=== PATIENT | female | born 1955 | race Caucasian/White ===

== ENCOUNTER → 2018-08-23 08:04 | Outpatient (CLI) | payer MEDICARE, OTHER | END | disposition home or self-care (01) | LOC: D.HCCARDIO 08:04 | PROVIDERS: ATTEND Internal Medicine Interventional Cardiology | DX: I25.10 Atherosclerotic heart disease of native coronary artery without angina pectoris (principal) ==

== ENCOUNTER 2018-09-01 11:39 | Outpatient (CLI) | payer MEDICARE, OTHER ==
[~2018-09-01] VITALS: Ht 170.2 cm; Wt 85.0 kg
--- NOTE | ~2018-09-01 | HEMODYNAMI ---
PATIENT:NICK TRIMBLE MEDICAL RECORD: [id number] : 51 LOCATION:D.CAT ADMISSION DATE: 09/01/18 Generatedon:09/01/201814:24 Patient name: NICK TRIMBLE Patient #: [id number] SSN: : 1955 Date of study: 09/01/2018 Page: Of Hemodynamic Procedure Report Patient Data Patient Demographics Procedure consent was obtained First Name: NICK Gender: Female Last Name: NAI : 1955 Middle Initial: D Age: 63 year(s) Patient #: [id number] Race: Unknown Additional ID: [id number] Contact details Address: [place] [address] State: [place] City: [place] Zip code: [address] Past Medical History Allergies Allergen Reaction Date Comments Reported Sulfa drugs 09/01/2018 Other allergy 09/01/2018 TETRACYCLINE, NORCO Admission Admission Data Admission Date: 09/01/2018 Admission Time: 11:39 Procedure Procedure Types Cath Procedure Diagnostic Procedure [facility] w/Coronaries Sedation Charges Moderate Sedation up to 15 minutes PCI Procedure Coronary Stent Coronary Stent Initial Procedure Description Procedure Date Procedure Date: 09/01/2018 Procedure Start Time: 14:02 Procedure End Time: 14:23 Procedure Staff Name Function Bartolo Marquez MD Performing Physician Lydia Newman RT Monitor Noel Estrada RN Nurse Nj Plata RT Scrub Procedure Data Cath Procedure Fluoroscopy Diagnostic fluoroscopy Total fluoroscopy Time: 3.8 time: 3.8 min min Diagnostic fluoroscopy Total fluoroscopy dose: 268 dose: 268 mGy mGy Contrast Material Contrast Material Type Amount (ml) Isovue 300 108 Entry Location Entry Primary Successful Side Size Upsize Upsize Entry Closure Lopez ccessful Closure Location (Fr) 1 (Fr) 2 (Fr) Remarks Device Remarks Radial Right 6 Fr Mechanical artery Short Compression Estimated blood loss: 5 ml Diagnostic catheters Device Type Used For End Catheter Placement DIAGNOSTIC [place] 110cm 5 LV Angiography Fr catheter ([id number]) DIAGNOSTIC [place] 110cm 5 Left Coronary Fr catheter ([id number]) Angiography DIAGNOSTIC [place] 110cm 5 Right Coronary Fr catheter ([id number]) Angiography Procedure Complications No complications Procedure Medications Medication Administration Route Dosage Oxygen etCO2 Nasal cannula 2 l/min Lidocaine 2% added to field 20 Heparin Flush Bag added to field 2 bags (1000units/500ml NS) 0.9% NaCl I.V. 100 ml/hr Radial Cocktail added to field 1 syringe (Verapomil 2mg/Nitro 400mcg/Heparin 1500units) Versed I.V. 2 mg Fentanyl I.V. 100 mcg Fentanyl I.V. 50 mcg Heparin Bolus I.V. 4000 units Versed I.V. 1 mg Fentanyl I.V. 50 mcg Hemodynamics Rest Heart Rate: 71 (bpm) Pressure Samples Time Site Value (mmHg) Purpose Heart Use Rate(bpm) 14:08 LV 145/12,19 EDP 42 14:09 AO 117/51(76) Pullback 75 14:09 LV 142/15,24 Pullback 75 14:09 AO 118/42(71) Snapshot 71 Gradients Valve Time Site 1 Site 2 Mean SEP/DFP Peak To Heart Use (mmHg) (sec/min) Peak Rate (mmHg) (bpm) Aortic 14:09 LV AO 18 16 25 75 142/15,24 117/51(76) Calculations Valve P-P Mean Valve Index Valve Source Name Gradient Area Flow (cm2) Aortic 25 18 25 18 Snapshots Pre Cath Intra NCS Post Cath Vital Signs Time Heart Resp SPO2 etCO2 NIBP (mmHg) Rhythm Pain Sedation Rate (ipm) (%) (mmHg) Status Level (bpm) 13:51:19 72 29 92 7.5 159/69(114) NSR 0 (11) 10(A) , No pain 13:55:56 69 16 97 9.8 154/72(130) NSR 0 (11) 10(A) , No pain 14:00:30 68 14 97 38.4 150/70(115) NSR 0 (11) 10(A) , No pain 14:05:07 66 17 97 20 154/63(108) NSR 0 (11) 9(A) , No pain 14:09:43 81 15 97 15.8 130/58(96) NSR 0 (11) 9(A) , No pain 14:14:11 73 19 96 19 140/61(115) NSR 0 (11) 9(A) , No pain 14:18:38 68 18 96 0 123/57(93) NSR 0 (11) 10(A) , No pain Medications Time Medication Route Dose Verified Delivered Reason Not es Effectiveness by by 13:52:46 Oxygen etCO2 2 l/min Bartolo Warrenie used for Nasal St Ko Estrada RN procedure cannula 13:52:56 Lidocaine 2% added 20ml Bartolo Mcfarland for local to vial [facility] anesthetic field MD CLEMENS 13:53:02 Heparin Flush added 2 bags Bartolo Mcfarland used for Bag to [facility] procedure (1000units/500ml field MD CLEMENS NS) 13:53:13 0.9% NaCl I.V. 100 Bartolo Warrenie Per physician ml/hr St Ko Estrada RN, MD 13:53:23 Radial Cocktail added 1 Bartolo Mcfarland for (Verapomil to syringe [facility] vasodilation 2mg/Nitro field MD CLEMENS 400mcg/Heparin 1500units) 14:00:29 Versed I.V. 2 mg Bartolo Warrenie for sedation St Ko Estrada RN, MD 14:00:35 Fentanyl I.V. 100 mcg Bartolo Warrenie for sedation St Ko Estrada RN, MD 14:08:13 Fentanyl I.V. 50 mcg Bartolo Warrenie for sedation St Ko Estrada RN, MD 14:08:47 Versed I.V. 1 mg Bartolo Warrenie for sedation St Ko Estrada RN, MD 14:12:54 Heparin Bolus I.V. 4000 Bartolo Buffie for joshua ified units St Ko Estrada RN anticoagulation with dr MD so 14:16:04 Fentanyl I.V. 50 mcg Bartolo Cohen for sedation St Ko Estrada RN, MD Procedure Log Time Note 13:31:47 Nj Plata RT(R) sent for patient. Start room use. 13:31:48 Time tracking: Regular hours (M-F 7:00 - 5:00) 13:31:53 Plan of Care:Hemodynamics will remain stable., Cardiac rhythm will remain stable., Comfort level will be maintained., Respiratory function will remain adequate., Patient/ family verbilizes understanding of procedure., Procedure tolerated without complication., Recovers from procedure without complications.. 13:40:09 Patient received from Pre/Post Procedure Room to [facility] 3 Alert and oriented. Tansferred to table in Supine position. 13:40:10 Warm blankets applied, and benito hugger turned on for patient comfort. 13:40:10 Correct patient and procedure confirmed by team. 13:40:11 Signed procedure consent form obtained from patient. 13:40:12 ECG and BP/O2 sat monitors applied to patient. 13:40:13 Full Disclosure recording started 13:49:53 Vital chart was started 13:50:48 Rhythm: sinus rhythm 13:50:51 Baseline sample Acquired. 13:51:09 H&P Date Dictated: 08/13/2018 Within 30 days and on chart., H&P Addendum completed by physician on day of procedure. (MUST COMPLETE FOR ALL OUTPATIENTS). 13:51:10 Pre-procedure instructions explained to patient. 13:51:14 Pre-op teaching completed and patient verbalized understanding. 13:51:16 Family in waiting room. 13:51:19 Patient NPO since Midnight. 13:51:29 Patient allergic to Sulfa drugs 13:51:45 Patient allergic to Other allergyTETRACYCLINE, NORCO 13:51:49 Is the patient allergic to Iodine/contrast media? No. 13:51:50 Is patient on blood thinner?Yes 13:51:52 ACC The patient was administered the following blood thiners within the last 24 hours: ACCPlavix 13:51:58 Patient diabetic? Yes. 13:51:59 If diabetic: On Metformin? No 13:52:04 Previous problem with sedation/anesthesia? No ? 13:52:05 Snore? Yes 13:52:06 Sleep apnea? Yes 13:52:07 Deviated septum? No 13:52:09 Opens mouth fully? Yes 13:52:10 Sticks out tongue? Yes 13:52:17 Airway obstruction? Yes ASTHMA 13:52:23 Dentures? Yes IN 13:52:26 Pre procedure: right dorsailis pedis pulse 2+ Normal; easily identifiable; not easily obliterated 13:52:28 Modified Carl's test Ulnar < 7 seconds 13:52:31 Patient pain scale 0/10 ?. 13:52:41 IV patent on arrival in left forearm with 0.9% NaCl at KVO. 13:52:43 Lab results completed and on chart. 13:52:46 Oxygen 2 l/min etCO2 Nasal cannula was administered by Noel Estrada RN; used for procedure; 13:52:49 Right Radial & Right Groin area was prepped with chlora-prep and draped in sterile fashion 13:52:50 Alarms reviewed by R. N. 13:52:50 Sharps counted by scrub and verified by R.N. 13:52:55 Use device set Radial Dx or PCI 13:52:56 Lidocaine 2% 20ml vial added to field was administered by Bartolo Marquez MD; for local anesthetic; 13:52:56 ACIST Syringe (75406) opened to sterile field. 13:52:57 Medline Cath Pack ([id number]) opened to sterile field. 13:52:57 Bag Decanter (2002S) opened to sterile field. 13:52:57 DIAGNOSTIC WIRE .035 260cm J wire (804167) opened to sterile field. 13:52:58 ACIST Hand Control (43742) opened to sterile field. 13:52:58 ACIST Manifold (35933) opened to sterile field. 13:52:59 MBrace Wrist Support ([id number]) opened to sterile field. 13:53:02 Heparin Flush Bag (1000units/500ml NS) 2 bags added to field was administered by Bartolo Marquez MD; used for procedure; 13:53:03 SHEATH 6FR Slender (801060) opened to sterile field. 13:53:13 0.9% NaCl 100 ml/hr I.V. was administered by Noel Estrada RN; Per physician; 13:53:23 Radial Cocktail (Verapomil 2mg/Nitro 400mcg/Heparin 1500units) 1 syringe added to field was administered by Bartolo Marquez MD; for vasodilation; 13:58:52 Final Timeout: patient, procedure, and site verified with staff and physician. All members of the team are in agreement. 13:58:55 Right Radial site verified by team. 13:58:58 Maximum allowable Isovue 300 dose 300ml. Physician notified. (300ml for normal creatinines. For patients with creatinine of 1.7 or higher multiply weight(kg) x 5 divided by creatinine.) 13:59:02 Fire Safety Assessment: A--An alcohol-based skin anteseptic being used preoperatively., C--Open oxygen or nitrous oxide is being used., D--An ESU, laser, or fiber-optic light is being used. 13:59:08 Physical assessment completed. ASA score P 2 - A patient with mild systemic disease as per Bartolo Marquez MD. 13:59:12 Sedation plan: IV Moderate Sedation Medication:Versed, Fentanyl 14:00:29 Versed 2 mg I.V. was administered by Noel Estrada RN; for sedation; 14:00:35 Fentanyl 100 mcg I.V. was administered by Noel Estrada RN; for sedation; 14:01:58 Zero performed for pressure channel P1 14:02:01 Procedure started. 14:02:04 Local anesthetic to right radial artery with Lidocaine 2% by Bartolo Marquez MD.INITIAL ACCESS ONLY 14:02:29 Zero performed for pressure channel P1 14:05:14 A 6 Fr Short sheath was inserted into the Right Radial artery 14:07:41 A DIAGNOSTIC [place] 110cm 5 Fr catheter (670381) was advanced over the wire and used for LV Angiography. 14:08:13 Fentanyl 50 mcg I.V. was administered by Noel Estrada RN; for sedation; 14:08:19 LV gram done using LUCIO 14:08:22 Injector settings: Ml/sec: 5, Volume: 15, 14:08:23 LV hemodynamics recorded. 14:08:47 Versed 1 mg I.V. was administered by Noel Estrada RN; for sedation; 14:08:49 EF : 55 % 14:09:14 A DIAGNOSTIC [place] 110cm 5 Fr catheter (744133) was advanced over the wire and used for Left Coronary Angiography. 14:10:24 A DIAGNOSTIC [place] 110cm 5 Fr catheter (034190) was advanced over the wire and used for Right Coronary Angiography. 14:11:02 Catheter removed. 14:11:07 Use device set HEPLER PCI 14:11:12 INFLATOR Merit BasixCompak ([id number]) opened to sterile field. 14:11:15 WHISPER 300cm guide wire ([id number]) opened to sterile field. 14:12:18 GUIDE 6FR EBU 3.5 catheter ([id number]) opened to sterile field. 14:12:23 6 Fr EBU 3.5 guide catheter was inserted over the wire 14:12:54 Heparin Bolus 4000 units I.V. was administered by Noel Estrada RN; for anticoagulation; verified with dr so 14:16:04 Fentanyl 50 mcg I.V. was administered by Noel Estrada RN; for sedation; 14:16:28 WHISPER wire advanced. 14:18:38 Place stent Inflation Number: 1 A JASON OTW 3.0 x 12 stent ([id number]) was prepped and advanced across the Mid CX. The stent was deployed at 14 NICOLLE for 0:20 (min:sec). 14:18:52 Stent catheter was removed intact over wire. 14:18:54 Wire removed. 14:18:55 Guide catheter removed. 14:19:04 Sheath removed intact; hemostasis achieved with Mechanical Compression to the Right Radial artery. 14:19:11 Procedure ended.(Physican Out) 14:19:26 Fluoroscopy time 03.80 minutes. 14:19:32 Fluoroscopy dose: 268 mGy 14:19:32 Flurop Dose total: 268 14:19:35 Contrast amount:Isovue 300 108ml. 14:19:37 Sharps counted by scrub and verified by R.N. 14:19:39 Insertion/operative site no bleeding no hematoma. 14:19:47 Post right radial artery:stable, clean and dry 14:19:53 Post Procedure Pulses reassessed and unchanged 14:19:57 Post-procedure physical assessment completed. ASA score P 2 - A patient with mild systemic disease as per Bartolo Marquez MD. 14:19:59 Post procedure rhythm: unchanged. 14:20:02 Estimated blood loss: 5 ml 14:20:03 Post procedure instruction explained to patient.Patient verbalizes understanding. 14:20:03 Patient needs reinforcement of post procedure teaching. 14:20:28 Procedure type changed to Cath procedure, Diagnostic procedure, LHC, LHC w/Coronaries, Sedation Charges, Moderate Sedation up to 15 minutes, PCI procedure, Coronary Stent, Coronary Stent Initial 14:20:33 Procedure Complication : No complications 14:20:35 See physician's report for complete and final results. 14:20:53 TR BAND Standard ([id number]) opened to sterile field. 14:21:12 Procedure and supply charges have been captured, reviewed, submitted and are correct. 14:23:03 Vital chart was stopped 14:23:07 Report given to Pre/Post Procedure Room. 14:23:09 Patient transfered to Pre/Post Procedure Room with Stretcher. 14:23:13 Procedure ended. 14:23:13 Full Disclosure recording stopped 14:23:35 TR band inflated with 10cc of air. 14:23:44 End room use (Document Last) Intervention Summary Intervention Notes Time ActionType Lesion and Equipment Action# Pressure Duration Attributes Used 14:18:38 Place stent Mid CX JASON OTW 3.0 1 14 00:20 x 12 stent ([id number]) Device Usage Item Name Manufacture Quantity Catalog Hospital Part Current Mini mal Lot# / Number Charge Number Stock Stock Serial# Code ACIST Syringe Acist 1 07950 133450 582615 [id number] 20 (63735) Medical Systems Inc Medline Cath Medline 1 [id number] 171499 34460 061136 5 Pack ([id number]) Bag Decanter Microtek 1 2001S 715199 34738 726879 5 () Medical Inc. DIAGNOSTIC [facility] [place] 1 783617 059370 304473 521886 30 WIRE .035 260cm J wire (444395) ACIST Hand Acist 1 75441 379192 009192 147304 5 Control Medical (57568) Systems Inc ACIST Acist 1 67435 217116 406568 346448 5 Manifold Medical (72537) Systems Inc MBrace Wrist Advanced 1 140-0250-00 350660 99789 257606 5 Support Vascular ([id number]) Dynamics SHEATH 6FR Terumo 1 [id number] 633975 787330 508439 5 Slender (80-1060) DIAGNOSTIC Terumo 1 40-5013 361218 374917 693295 5 [place] 110cm 5 Fr catheter (232927) INFLATOR [facility] 1 GS4664 932298 922342 282296 15 [facility] Medical BasixCompak (ND1413) WHISPER 300cm Olvera 1 [id number] 401643 378040 516336 5 guide wire Vascular ([id number]) GUIDE 6FR EBU Medtronic 1 [id number] 706264 54942 777547 3 3.5 catheter ([id number]) JASON OTW 3.0 Medtronic 1 [id number] 790026 4498619 839397 5 [id number] x 12 stent ([id number]) TR BAND Terumo 1 [id number] 643902 044097 369440 40 Standard ([id number]) Signature Audit [place] Stage Time Signature Unsigned Intra-Procedure 09/01/2018 Lydia 2:23:56 PM Counts RT(R) Signatures Monitor : Lydia Signature : Counts RT Date : Time : [address] [place] [address]
[2018-09-01] MEDS ORDERED: NORVASC10 MG PO (12:21)
[2018-09-01] MEDS ORDERED: PLAVIX75 MG PO (12:22)
[2018-09-01] MEDS ORDERED: COREG 3.1253.125 MG PO (12:22)
[2018-09-01] MEDS ORDERED: MIRAPEX0.5 MG PO (12:23)
[2018-09-01] MEDS ORDERED: HYDROCHLOROTHIA50 MG PO (12:23)
[2018-09-01] MEDS ORDERED: ZYRTEC10 MG PO (12:24)
[2018-09-01] MEDS ORDERED: MICARDIS40 MG PO (12:24)
[2018-09-01] MEDS ORDERED: FUROSEMIDE20 MG PO (12:24)
[2018-09-01] MEDS ORDERED: FERROUS SULFAT325 MG PO (12:27)
[2018-09-01] MEDS ORDERED: METOLAZONE2.5 MG PO (12:27)
[2018-09-01] MEDS ORDERED: LANTUS INSULIN10 ML SC (12:28)
[2018-09-01] MEDS ORDERED: NOVOLOG100 UNIT/1 SC (12:28)
[2018-09-01] MEDS ORDERED: NITROQUICK0.4 MG SL (12:28)
[2018-09-01] MEDS ORDERED: B-12 DOTS500 MCG PO (12:29)
[2018-09-01] MEDS ORDERED: VITAMIN D31000 UNIT PO (12:29)
[2018-09-01] MEDS ORDERED: VITAMIN E100 UNIT PO (12:29)
[2018-09-01 12:42] VITALS: BP 164/67; Ht 170.2 cm; Wt 85.0 kg
[2018-09-01 12:42] LABS: BASOPHILS 0.6 % (0-2); EOSINOPHILS 1.9 % (0-7); HEMATOCRIT 37.8 % (36.0-48.0); IMMATURE GRANULOCYTES 0.2 % (0-5); LYMPHOCYTES 28.5 % (15-50); MCH 28.1 pg (26.0-34.0); MCHC 34.4 g/dL (31.0-37.0); MCV 81.8 fL (80.0-100.0); MEAN PLATELET VOLUME 12.1 fL (7.4-10.4); MONOCYTES 6.7 % (2-11); NEUTROPHILS 62.1 % (40-80); PLATELET COUNT 171 10x3/uL (130-400); RBC 4.62 10x6/uL (4.00-5.40); RDW 12.4 % (11.5-14.5); WBC 8.2 10x3/uL (4.8-10.8)
[2018-09-01 12:51] LABS: ANION GAP 11.3 mmol/L (8-16); CALCIUM 9.6 mg/dL (8.5-10.1); CARBON DIOXIDE 28.2 mmol/L (21.0-32.0); CREATININE - SERUM 0.9 mg/dL (0.6-1.3); POTASSIUM - SERUM 4.5 mmol/L (3.5-5.1)
--- NOTE | 2018-09-01 14:50 | NUR ---
PATIENT INTERMITTENTLY RESTING, WAKES TO VERBAL STIMULI. VSS ON 2L NC. RIGHT TR BAND IN PLACE, NO S/S OF BLEEDING OR HEMATOMA. NO C/O PAIN,NUMBNESS, OR TINGLING. NO N/V.
--- NOTE | 2018-09-01 14:51 | OP ---
PATIENT NAME: NICK TRIMBLE MEDICAL RECORD: [id number] :51 LOCATION:[facility] ADMISSION DATE: SURGEON: JOHN PEREZ MD DATE OF OPERATION: 09/01/2018 PROCEDURE: Left heart catheterization, selective coronary angiography, right radial approach. CATHETERS USED: Lavelle catheter, radial sheath. The procedure was well tolerated. The patient returned to titus, sheath removed. FINDINGS: Left ventriculography in 30-degree LUCIO view. Normal wall motion and normal systolic function. CORONARY ANATOMY: LEFT MAIN: Left main is free of disease. LAD: An area of previous stenting is widely patent. No evidence of progression disease. CIRCUMFLEX: Circumflex has a restenosis versus algaaciq disease lesion just after the previously placed stent of 90%. RIGHT CORONARY ARTERY: Previously placed stent and widely patent. IMPRESSION: Culprit artery of circumflex. PLAN: Intervention momentarily. DESCRIPTION OF PROCEDURE: EBU 3.5 guiding catheter provided good guide catheter support followed by 300 cm Whisper wire. Stent deployed was a 3.0 x 12 mm Willard drug-eluting stent up to 14 atmospheres. Final injection shows excellent resolution of a 90% stenosis. No significant residual. ALEA flow was 3 throughout the procedure. The patient previously on Plavix. Heparin was used during the case. Sheath closed with TR band. TRANSINT:[id number] Voice Confirmation ID: [id number] DOCUMENT ID: [id number] JOHN PEREZ MD at 1451 CC: [id number] DICTATION DATE: 09/01/18 1424 PULP PRESS TENDER: 09/01/18 1443 [address] [place] [id number] [place] [id number]
--- NOTE | 2018-09-01 15:19 | NUR ---
PATIENT AWAKE, EATING SANDWICH. VSS ON 3L NC. RIGHT TR BAND IN PLACE, NO S/S OF BLEEDING OR HEMATOMA. NO C/O PAIN, NUMBNESS, OR TINGLING. NO N/V.
--- NOTE | 2018-09-01 15:50 | NUR ---
PATIENT AWAKE, EATING ORANGES AND DRINKING WATER, NO N/V. RIGHT TR BAND IN PLACE, NO S/S OF BLEEDING OR HEMATOMA. NO C/O PAIN, NUMBNESS, OR TINGLING. VSS ON ROOM AIR.
--- NOTE | 2018-09-01 16:17 | NUR ---
PATIENT AWAKE AND SITTING UP, SPOUSE AT BEDSIDE. VSS ON ROOM AIR. RIGHT TR BAND IN PLACE, NO S/S OF BLEEDING OR HEMATOMA. NO C/O PAIN,NUMBNESS, OR TINGLING. GIVEN CHOCOLATE ICE CREAM PER REQUEST, NO N/V.
--- NOTE | 2018-09-01 16:50 | NUR ---
PATIENT AWAKE, SPOUSE AT BEDSIDE. VSS ON ROOM AIR. RIGHT TR BAND IN PLACE, NO S/S OF BLEEDING OR HEMATOMA. NO C/O PAIN, NUMBNESS, OR TINGLING. NO N/V.
--- NOTE | 2018-09-01 17:20 | NUR ---
INITIATE AIR REMOVAL PROTOCOL FOR TR BAND, 5CC OF AIR REMOVED, NO S/S OF BLEEDING OR HEMATOMA. PATIENT INTERMITTENTLY RESTING, VSS ON 2L NC. NO C/O PAIN, NUMBNESS, OR TINGLING.
--- NOTE | 2018-09-01 17:50 | NUR ---
REMAINING AIR REMOVED FROM TR BAND, NO S/S OF BLEEDING OR HEMATOMA. DRESSING APPLIED TO RIGHT RADIAL SITE. IV REMOVED. EDUCATION GIVEN TO PATIENT AND SPOUSE REGARDING DISCHARGE INSTRUCTIONS AND MEDICATION COMPLIANCE, BOTH VOICE UNDERSTANDING. VSS ON ROOM AIR.
--- NOTE | 2018-09-01 18:19 | NUR ---
PATIENT VOIDED WITHOUT DIFFICULTY. PATIENT TRANSPORTED VIA WHEELCHAIR TO CAR WITH SPOUSE DRIVING, ALL BELONGINGS SENT WITH PATIENT.
== END 2018-09-01 18:19 ==
LOC: D.CATH 11:39
PROVIDERS: ATTEND Internal Medicine Interventional Cardiology
DX: I25.10 Atherosclerotic heart disease of native coronary artery without angina pectoris (principal); T82.855A Stenosis of coronary artery stent, initial encounter; Z01.812 Encounter for preprocedural laboratory examination
CPT/HCPCS: 93458; C9600

== ENCOUNTER 2020-11-11 00:33 | Inpatient (IN) | payer MEDICARE, OTHER ==
[~2020-11-11] VITALS: Ht 170.2 cm; Wt 89.7 kg
[2020-11-11] VITALS (7 sets, daily range): BP systolic 143–182; BP diastolic 54–73; Ht 170.2 cm; Wt 89.7 kg
--- NOTE | ~2020-11-11 | HEMODYNAMI ---
PATIENT:NICK TRIMBLE MEDICAL RECORD: [id number] : 51 LOCATION:[facility] D.2104 ADMISSION DATE: 11/11/20 Generatedon::38 Patient name: NICK TRIMBLE Patient #: [id number] SSN: [id number] : 1955 Date of study: 11/12/2020 Page: Of Hemodynamic Procedure Report Patient Data Patient Demographics Procedure consent was obtained First Name: NICK Gender: Female Last Name: NAI : 1955 Middle Initial: D Age: 65 year(s) Patient #: [id number] Race: SSN: [id number] Additional ID: [id number] Contact details Address: [place] [address] State: [place] City: [place] Zip code: [address] Past Medical History Allergies Allergen Reaction Date Comments Reported Sulfa drugs 09/01/2018 Other allergy 09/01/2018 TETRACYCLINE, NORCO Admission Admission Data Admission Date: 11/11/2020 Admission Time: 17:34 Arrival Date: 11/12/2020 Arrival Time: 0:00 Admit Source: Other Insurance Payor: Medicare Room #: D.2104 [facility] #: [id number] Height (in.): 67 BSA: 2.05 (m2) Height (cm.): 170.18 BMI: 32.17 (kg/m2) Weight (lbs.): 205.43 Weight (kg.): 93.18 Lab Results Lab Result Date: 11/12/2020 Lab Result Time: 0:00 Biochemistry Name Units Result Min Max BUN mg/dl 38 --(----)-* 7 18 CK-MB ng/ml 8.8 --(----)-* 0 3.6 Creatinine mg/dl 1.3 --(---*)-- 0.6 1.3 eGFR ml/min 43 *-(----)-- 90 120 NONAFRICAN Troponin l ng/ml 7.335 --(----)-* 0 0.06 CBC Name Units Result Min Max Hematocrit % 34.4 *-(----)-- 42 54 Hemoglobin g/dl 11.2 *-(----)-- 13.5 17.5 Procedure Procedure Types Cath Procedure Diagnostic Procedure LHC LH w/Coronaries FFR/IVUS FFR Initial Sedation Charges Moderate Sedation 10-24 minutes PCI Procedure Coronary Stent Coronary Stent Initial Hemochron ACT Test Procedure Description Procedure Date Procedure Date: 11/12/2020 Procedure Start Time: 8:11 Procedure End Time: 8:33 Procedure Staff Name Function Bartolo Marquez MD Performing Physician Kurt Harvey RN Nurse Luli Miller RT Scrub Funmilayo Tierney RT Monitor Procedure Data Cath Procedure Fluoroscopy Diagnostic fluoroscopy Total fluoroscopy Time: 5.4 time: 5.4 min min Diagnostic fluoroscopy Total fluoroscopy dose: dose: 1057 mGy 1057 mGy Contrast Material Contrast Material Type Amount (ml) Isovue 370 76 Entry Location Entry Primary Successful Side Size Upsize Upsize Entry Closure Lopez ccessful Closure Location (Fr) 1 (Fr) 2 (Fr) Remarks Device Remarks Radial Right 6 Fr Mechanical artery Short Compression Estimated blood loss: 10 ml Diagnostic catheters Device Type Used For End Catheter Placement DIAGNOSTIC [place] 110cm 5 Procedure Fr catheter ([id number]) Procedure Complications No complications Procedure Medications Medication Administration Route Dosage 0.9% NaCl I.V. 100 ml/hr Oxygen etCO2 Nasal cannula 2 l/min Heparin Flush Bag added to field 2 bags (1000units/500ml NS) Lidocaine 2% added to field 20 Radial Cocktail added to field 1 syringe (Verapamil 2mg/Nitro 400mcg/Heparin 1500units) Versed I.V. 1 mg Fentanyl I.V. 25 mcg Radial Cocktail I.A. 1 syringe (Verapamil 2mg/Nitro 400mcg/Heparin 1500units) Heparin Bolus I.V. 5000 units Integrilin (Bolus I.V. 8.5 ml 2mg/ml) Integrilin (Bolus wasted 1.5 ml 2mg/ml) Oxygen 10 l/min Radial Cocktail I.A. 1 syringe (Verapamil 2mg/Nitro 400mcg/Heparin 1500units) Plavix P.O. 600 mg Hemodynamics Rest BSA: 2.05 (m2) HGB: 11.2 (g/dl) O2 Consumption: Estimated: 200.98 (ml/min) O2 Co nsumption indexed: Estimated:98.04 (ml/min/m) Heart Rate: 84 (bpm) Pressure Samples Time Site Value (mmHg) Purpose Heart Use Rate(bpm) 8:14 LV 154/4,8 Snapshot 81 Gradients Valve Time Site Site Mean SEP/DFP Peak To Heart Use 1 2 (mmHg) (sec/min) Peak Rate (mmHg) (bpm) Aortic 8:15 LV AO 103 Snapshots Pre Cath Intra NCS Post Cath Vital Signs Time Heart Resp SPO2 etCO2 NIBP (mmHg) Rhythm Pain Sedation Rate (ipm) (%) (mmHg) Status Level (bpm) 8:02:57 86 19 88 0 180/79(128) NSR 0 (11) 9(A) , No pain 8:07:17 82 21 87 35.9 159/71(136) NSR 0 (11) 9(A) , No pain 8:12:46 85 12 86 12.7 158/73(120) NSR 0 (11) 9(A) , No pain 8:17:04 81 19 86 0 152/73(103) NSR 0 (11) 9(A) , No pain 8:21:31 84 34 85 0.7 159/64(123) NSR 0 (11) 9(A) , No pain 8:25:49 82 18 87 11.9 146/67(101) NSR 0 (11) 9(A) , No pain 8:30:13 75 23 93 18.7 165/64(120) NSR 0 (11) 9(A) , No pain Medications Time Medication Route Dose Verified Delivered Reason Note s Effectiveness by by 8:04:26 0.9% NaCl I.V. 100 Kurt Kurt Per physician ml/hr Wes Harvey RN RN 8:04:35 Oxygen etCO2 2 l/min Kurt Kurt for low 02 sats Nasal Wes Harvey cannula RN RN 8:04:45 Heparin Flush added 2 bags Kurt Kurt used for Bag to Wes Harvey procedure (1000units/500ml field RN RN NS) 8:04:56 Lidocaine 2% added 20ml Kurt Kurt for local to vial Lorigan Wse anesthetic field MARCUS RN 8:05:07 Radial Cocktail added 1 Kurt Kurt used for (Verapamil to syringe Wes Harvey procedure 2mg/Nitro field RN RN 400mcg/Heparin 1500units) 8:13:39 Versed I.V. 1 mg Kurt Kurt for sedation Wes Harvey RN, RN 8:13:46 Fentanyl I.V. 25 mcg Kurt Kurt for sedation Wes Harvey RN, RN 8:14:01 Radial Cocktail I.A. 1 Kurt Bartolo for (Verapamil syringe Lorigan Jimmy vasodilation 2mg/Nitro RN 400mcg/Heparin 1500units) 8:25:29 Heparin Bolus I.V. 5000 Kurt Kurt for units Wes Harvey anticoagulation RN RN 8:25:50 Integrilin I.V. 8.5 ml Kurt Kurt for (Bolus 2mg/ml) Wes Harvey antiplatelet AMRIT MARCUS therapy 8:25:59 Integrilin wasted 1.5 ml Kurt Kurt to sharp's (Bolus 2mg/ml) Wes Harvey RN, RN 8:27:49 Oxygen simple 10 Kurt Kurt for low 02 sats mask l/min Wes Harvey RN, RN 8:33:08 Radial Cocktail I.A. 1 Kurt Bartolo for (Verapamil syringe Phamigan Jimmy vasodilation 2mg/Nitro RN 400mcg/Heparin 1500units) 8:37:17 Plavix P.O. 600 mg Kurt Phillipsory for Wes Marquez antiplatelet AMRIT CLEMENS therapy Procedure Log Time Note 7:32:52 Informed consent obtained and on chart 7:33:27 Arrival Date: 11/12/2020 12:00:00 AM 7:33:29 Admit Source: Other 7:33:32 Insurance Payor : Medicare 7:33:52 Patient Height : 67 inches 7:33:58 Patient Weight : 205.43 lbs 7:34:36 Lab Result : Troponin l 7.335 ng/ml 7:34:36 Lab Result : eGFR NONAFRICAN 43 ml/min 7:34:36 Lab Result : CK-MB 8.8 ng/ml 7:34:36 Lab Result : BUN 38 mg/dl 7:34:36 Lab Result : Creatinine 1.3 mg/dl 7:34:36 Lab Result : Hematocrit 34.4 % 7:34:36 Lab Result : Hemoglobin 11.2 g/dl 7:35:45 ACC Patient presents with Unstable Angina CCS Anginal Class 2--Slight limitation of ordinary activity. 7:35:48 Procedure Status Urgent Heart Cath (IP). 7:35:49 Time tracking: Regular hours (M-F 7:00 - 5:00) 7:35:54 Plan of Care:Hemodynamics will remain stable., Cardiac rhythm will remain stable., Comfort level will be maintained., Respiratory function will remain adequate., Patient/ family verbilizes understanding of procedure., Procedure tolerated without complication., Recovers from procedure without complications.. 7:36:01 H&P Date Dictated: 11/11/2020 Within 30 days and on chart.. 7:42:55 Patient NPO since Midnight. 7:43:13 Lab results completed and on chart. 7:43:24 Stress Test: no; N/A ? 7:43:26 Alarms reviewed by R. N. 7:43:26 Sharps counted by scrub and verified by R.N. 7:47:06 Kurt Harvey RN sent for patient. Start room use. 7:49:10 Patient received from Pre/Post Procedure Room to CCL 2 Alert and oriented. Tansferred to table in Supine position. 7:49:22 Warm blankets applied, and benito hugger turned on for patient comfort. 7:49:22 Correct patient and procedure confirmed by team. 7:49:22 ECG and BP/O2 sat monitors applied to patient. 7:49:24 Full Disclosure recording started 7:49:25 Pre-procedure instructions explained to patient. 7:49:25 Pre-op teaching completed and patient verbalized understanding. 7:49:28 Family in patients room. 7:49:32 Is the patient allergic to Iodine/contrast media? No. 7:49:34 Was the patient premedicated? Yes 7:49:42 Patient diabetic? Yes. 7:49:44 If diabetic: On Metformin? No 7:49:46 Patient not . Patient is over age 55. 7:49:47 ----Pre-sedation anethsthesia assessment.---- 7:49:50 Previous problem with sedation/anesthesia? No ? 8:01:38 Vital chart was started 8:01:43 Rhythm: sinus rhythm 8:01:44 Baseline sample Acquired. 8:01:55 Is patient on blood thinner?No 8:02:00 Snore? Yes 8:02:01 Sleep apnea? No 8:02:03 Deviated septum? No 8:02:04 Opens mouth fully? Yes 8:02:04 Sticks out tongue? Yes 8:02:07 Airway obstruction? Yes COPD 8:02:10 Dentures? No ? 8:02:13 Pre procedure: right dorsailis pedis pulse 1+ Palpable, but thready & weak; easily obliterated 8:02:15 Modified Carl's test Ulnar < 7 seconds 8:02:17 Patient pain scale 0/10 ?. 8:02:21 IV patent on arrival in left antecubital with 0.9% NaCl at [facility]. 8:02:56 Risk of Mortality: 0.1 8:02:59 Risk of blood transfusion: 2.4 8:03:02 Risk of NAN: 6.3 8:03:06 Right Radial & Right Groin area was prepped with chlora-prep and draped in sterile fashion 8:03:14 Use device set Radial Dx or PCI 8:03:15 ACIST Syringe (05844) opened to sterile field. 8:03:16 Medline Cath Pack ([id number]) opened to sterile field. 8:03:16 Bag Decanter (2002S) opened to sterile field. 8:03:17 ACIST Hand Control (84931) opened to sterile field. 8:03:18 ACIST Manifold (52662) opened to sterile field. 8:03:21 SHEATH 6FR RAIN (0240104) opened to sterile field. 8:03:24 EMERALD Guide Wire (305-163) opened to sterile field. 8:03:26 MBrace Wrist Support ([id number]) opened to sterile field. 8:04:07 --------ALL STOP TIME OUT------ 8:04:08 Final Timeout: patient, procedure, and site verified with staff and physician. All members of the team are in agreement. 8:04:12 Right Radial & Right Groin site verified by team. 8:04:16 Fire Safety Assessment: A--An alcohol-based skin anteseptic being used preoperatively., C--Open oxygen or nitrous oxide is being used., D--An ESU, laser, or fiber-optic light is being used. 8:04:19 Physical assessment completed. ASA score P 2 - A patient with mild systemic disease as per Bartolo Marquez MD. 8:04:24 3b) 30-44 Moderately reduced kidney function. 8:04:26 0.9% NaCl 100 ml/hr I.V. was administered by Kurt Harvey RN; Per physician; Verbal order read back and verified. 8:04:35 Oxygen 2 l/min etCO2 Nasal cannula was administered by Kurt Harvey RN; for low 02 sats; Verbal order read back and verified. 8:04:41 Maximum allowable contrast dose (3.7 X eGFR X 0.75)119 ml. 8:04:45 Heparin Flush Bag (1000units/500ml NS) 2 bags added to field was administered by Kurt Harvey RN; used for procedure; Verbal order read back and verified. 8:04:45 Sedation plan: IV Moderate Sedation Medication:Versed, Fentanyl 8:04:56 Lidocaine 2% 20ml vial added to field was administered by Kurt Harvey RN; for local anesthetic; Verbal order read back and verified. 8:05:07 Radial Cocktail (Verapamil 2mg/Nitro 400mcg/Heparin 1500units) 1 syringe added to field was administered by Kurt Harvey RN; used for procedure; Verbal order read back and verified. 8:11:40 Procedure started. 8:11:55 Local anesthetic to right radial artery with Lidocaine 2% by Bartolo Marquez MD.INITIAL ACCESS ONLY 8:12:17 A 6 Fr Short sheath was inserted into the Right Radial artery 8:13:39 Versed 1 mg I.V. was administered by Kurt Harvey RN; for sedation; Verbal order read back and verified. 8:13:46 Fentanyl 25 mcg I.V. was administered by Kurt Harvey RN; for sedation; Verbal order read back and verified. 8:14:01 Radial Cocktail (Verapamil 2mg/Nitro 400mcg/Heparin 1500units) 1 syringe I.A. was administered by Bartolo Marquez MD; for vasodilation; Verbal order read back and verified. 8:14:10 A DIAGNOSTIC [place] 110cm 5 Fr catheter ([id number]) was advanced over the wire and used for Procedure. 8:14:15 LV gram done using LUCIO 8:14:49 LV hemodynamics recorded. 8:14:51 Injector settings: Ml/sec: 5, Volume: 15, 8:14:57 EF : 55 % 8:15:13 LCA angiography performed. 8:15:16 Injector settings: Ml/sec: 3, Volume: 6, 8:17:10 RCA angiography performed. 8:17:12 Injector settings: Ml/sec: 3, Volume: 6, 8:17:29 Catheter exchanged over wire. 8:17:56 Proceeding to intervention. 8:18:03 Use device set [place] PCI 8:18:05 INFLATOR Merit BasixCompak ([id number]) opened to sterile field. 8:18:16 [place] OmniWire (85406) opened to sterile field. 8:20:19 6 Fr HS 1 guide catheter was inserted over the wire 8:23:18 Pressure wire advanced. 8:25:29 Heparin Bolus 5000 units I.V. was administered by Kurt Harvey RN; for anticoagulation; Verbal order read back and verified. 8:25:50 Integrilin (Bolus 2mg/ml) 8.5 ml I.V. was administered by Kurt Harvey RN; for antiplatelet therapy; Verbal order read back and verified. 8:25:59 Integrilin (Bolus 2mg/ml) 1.5 ml wasted was administered by Kurt Harvey RN; to sharp's; Verbal order read back and verified. 8:25:59 Wire advanced across lesion. 8:26:04 RCA lesion measured at .65 with IFR 8:26:56 ACC Pre-intervention ALEA Flow is 3. 8:27:49 Oxygen 10 l/min simple mask was administered by Kurt Harvey RN; for low 02 sats; Verbal order read back and verified. 8:28:25 Place stent Inflation Number: 1 A JASON RX 3.0 x 15 stent ([id number]) was prepped and advanced across the Mid RCA . The stent was deployed at 14 NICOLLE for 0:00 (min:sec) . 8:29:17 Pressure wire advanced. 8:29:57 RCA lesion measured at .72 with IFR 8:30:07 Stent catheter was removed intact over wire. 8:30:07 Wire removed. 8:30:08 Guide catheter removed. 8:30:54 ZEPHYR REGULAR TR BAND (062077) opened to sterile field. 8:31:04 Sheath removed intact; hemostasis achieved with Mechanical Compression to the Right Radial artery. 8:31:07 Procedure ended.(Physican Out) 8:31:53 Fluoroscopy time 05.40 minutes. 8::58 Fluoroscopy dose: 1057 mGy 8:31:58 Flurop Dose total: 1057 8:32:03 Dose Area Product 27857 mGy/cm. 8:32:07 Contrast amount:Isovue 370 76ml. 8:32:09 Maximum allowable dose exceeded? No. 8:32:09 Sharps counted by scrub and verified by R.N. 8:32:12 Sunflower band inflated with 10cc of air. 8:32:13 Post Procedure Pulses reassessed and unchanged 8:32:15 Post procedure: right dorsailis pedis pulse 1+ Palpable, but thready & weak; easily obliterated. 8:32:18 Post-procedure physical assessment completed. ASA score P 2 - A patient with mild systemic disease as per Bartolo Marquez MD. 8:32:20 Post procedure rhythm: unchanged. 8:32:23 Estimated blood loss: 10 ml 8:32:25 Post procedure instruction explained to patient.Patient verbalizes understanding. 8:32:25 Patient needs reinforcement of post procedure teaching. 8:32:54 Procedure type changed to Cath procedure, Diagnostic procedure, LHC, [facility] w/Coronaries, FFR/IVUS, FFR Initial, Sedation Charges, Moderate Sedation 10-24 minutes, PCI procedure, Coronary Stent, Coronary Stent Initial, Hemochron ACT Test 8:33:08 Radial Cocktail (Verapamil 2mg/Nitro 400mcg/Heparin 1500units) 1 syringe I.A. was administered by Bartolo Marquez MD; for vasodilation; Verbal order read back and verified. 8:33:16 Procedure and supply charges have been captured, reviewed, submitted and are correct. 8:33:20 Procedure Complication : No complications 8:33:23 Vital chart was stopped 8:33:26 [facility] Findings: MVD- PCI performed (see procedure note) 8:33:29 Operative report dictated upon procedure completion. 8:33:30 See physician's report for complete and final results. 8:33:36 Report given to [facility]. 8:33:43 Patient transfered to [facility] with Bed. 8:33:45 Procedure ended. 8:33:45 Full Disclosure recording stopped 8:33:54 ACC-PCI Only Patient was given prescriptions, or instructed by Bartolo Marquez MD to start/continue the following medications upon discharge: Plavix 8:33:55 End room use (Document Last) 8:34:20 End room use (Document Last) 8:36:58 End room use (Document Last) 8:37:17 Plavix 600 mg P.O. was administered by Bartolo Marquez MD; for antiplatelet therapy; Verbal order read back and verified. 8:38:07 ACT drawn and resulted at 219 seconds. (normal therapeutic range 180-240 seconds). Intervention Summary Intervention Notes Time ActionType Lesion and Equipment Used Action# Pressure Duration Attributes 8:28:25 Place stent Mid RCA JASON RX 3.0 x 1 14 00:00 15 stent ([id number]) Device Usage Item Name Manufacture Quantity Catalog [facility] Lot# / Number Charge Number Stock Stock Serial# Code ACIST Syringe Acist 1 07782 545595 131570 879046 20 (33575) Medical Systems Inc Medline Cath Medline 1 [id number] 305528 41483 645540 5 Pack ([id number]) Bag Decanter Microtek 1 2002S 028477 06640 146738 5 (2002S) Medical Inc. ACIST Hand Acist 1 94503 972674 182468 953360 5 Control Medical (38547) Systems Inc ACIST Manifold Acist 1 64236 236545 217117 753730 5 (80755) Medical Systems Inc SHEATH 6FR Cardinal 1 3045084 527149 5729296 629124 5 RAIN ([id number]) [facility] EMERALD Guide Cardinal 1 502-455 502181 330937 849691 5 Wire (502-455) [facility] MBrace Wrist Advanced 1 140-0250-00 542306 58914 636641 5 Support Vascular ([id number]) Dynamics DIAGNOSTIC Terumo 1 40-0556 194726 908334 899977 5 [place] 110cm 5 Fr catheter (044835) INFLATOR Merit Merit 1 YA4876 260861 257379 141218 15 [facility] Medical (KI4854) Claypool Claypool 1 3480007 808437 13286 9911 5 OmniWire (62901) JASON RX 3.0 x Medtronic 1 [id number] 351673 8754457 712973 5 [id number] 15 stent ([id number]) ZEPHYR REGULAR Cardinal 1 123898 430351 6364270 865256 5 [facility] (402311) Signature Audit [place] Stage Time Signature Unsigned Intra-Procedure 11/12/2020 Funmilayo Tierney 8:34:20 AM RT(R) Intra-Procedure 11/12/2020 Kurt 8:36:58 AM Wes RN Intra-Procedure 11/12/2020 Bartolo Restrepo 8:38:52 AM Ko CLEMENS Signatures Performing Physician : Signature : Bartolo Marquez MD Date : Time : Nurse : Kurt Harvey Signature : RN Date : Time : Monitor : Funmilayo Tierney Signature : RT Date : Time : [facility] [address] [place] [address]
[~2020-11-11 00:33] MED LIST: B-12 DOTS500 MCG PO; COREG 3.1253.125 MG PO; FERROUS SULFAT325 MG PO; FUROSEMIDE20 MG PO; HYDROCHLOROTHIA50 MG PO; LANTUS INSULIN10 ML SC; METOLAZONE2.5 MG PO; MICARDIS40 MG PO; MIRAPEX0.5 MG PO; NITROQUICK0.4 MG SL; NORVASC10 MG PO; NOVOLOG100 UNIT/1 SC; PLAVIX75 MG PO; VITAMIN D31000 UNIT PO; VITAMIN E100 UNIT PO; ZYRTEC10 MG PO
[2020-11-11] MEDS ORDERED: TRESIBA FL100 UNIT/1 SC (00:50)
[2020-11-11] MEDS ORDERED: COZAAR25 MG (00:52)
[2020-11-11] MEDS ORDERED: BAYER CHEWABLE81 MG PO (00:54)
[2020-11-11] MEDS ORDERED: CARDURA8 MG PO (00:55)
[2020-11-11 01:51] LABS: BASOPHILS 0.1 % (0-2); EOSINOPHILS 0 % (0-7); HEMATOCRIT 34.4 % (36.0-48.0); HEMOGLOBIN 11.2 g/dL (12-16); IMMATURE GRANULOCYTES 0.6 % (0-5); LYMPHOCYTE ABS# 0.98 10x3/uL (1.18-3.74); LYMPHOCYTES 8.2 % (15-50); MCH 26.2 pg (26.0-34.0); MCHC 32.6 g/dL (31.0-37.0); MCV 80.4 fL (80.0-100.0); MEAN PLATELET VOLUME 12.1 fL (7.4-10.4); MONOCYTES 1.6 % (2-11); NEUTROPHIL ABS# 10.72 10x3/uL (1.56-6.13); NEUTROPHILS 89.5 % (40-80); PLATELET COUNT 209 10x3/uL (130-400); RBC 4.28 10x6/uL (4.00-5.40); RDW 12.9 % (11.5-14.5)
[2020-11-11 02:00] LABS: INR 1.16 (0.85-1.17); PROTIME 13.7 SECONDS (11.6-15.0)
[2020-11-11 02:17] LABS: ALKALINE PHOSPHATASE 75 U/L (30-120); ALT (SGPT) 22 U/L (10-68); BILIRUBIN - TOTAL 0.31 mg/dL (0.2-1.3); CALC OSMOLALITY 291 mosm/kg (275-300); CALCIUM 9.2 mg/dL (8.5-10.1); CHLORIDE - SERUM 100 mmol/L (98-107); CKMB 8.8 U/L (0.0-3.6); CREATINE KINASE 224 UL (21-215); CREATININE - SERUM 1.3 mg/dL (0.6-1.3); GLUCOSE 301 mg/dL (74-106); POTASSIUM - SERUM 4.1 mmol/L (3.5-5.1); PRO BNP 1956 pg/mL (0-125); PROTEIN - SERUM 7.6 g/dL (6.4-8.2); SODIUM 136 mmol/L (136-145); UREA NITROGEN 38 mg/dL (7-18); eGFR NON AFRICAN AMERICAN 43 mL/min (90-120)
[2020-11-11 02:22] LABS: TROPONIN-I 3.711 ng/mL (0.000-0.060)
--- NOTE | 2020-11-11 02:30 | NUR ---
CONTACTED KRYSTIN ROSALES APN TO NOTIFY OF CRITICAL TROP 3.711. HE STATED TO INITIATE CONSULT WITH DR. HOLT FOR CARDIOLOGY.
[2020-11-11 02:32] LABS: ALBUMIN 3.2 g/dL (3.4-5.0); CARBON DIOXIDE 28.1 mmol/L (21.0-32.0)
--- NOTE | 2020-11-11 02:45 | NUR ---
DR. HOLT CONTACTED. HE ADVISED TO GIVE PT 1MG/KG LOVENOX IF SHE HAS NOT HAD ANY ANTICOAGULANTS. ALSO GIVE 5MG METOPROLOL IV FOR HTN AND 5MG AMLODAPINE PO IF SBP REMAINS ABOVE 160.
--- NOTE | 2020-11-11 10:34 | NUR ---
PT REPORT ATTEMPT X1 AT THIS TIME.
--- NOTE | 2020-11-11 10:50 | NUR ---
RECEIVED REPORT FROM DILMA IN ED, PT TO UNIT SOON.
--- NOTE | 2020-11-11 12:00 | NUR ---
PATIENT ARRIVED FROM ED VIA GERNEY. PATIENT ALERT/ORIENTED/AMBULATORY. NO DISTRESS. CALL LIGHT PLACED WITHIN REACH. PATIENT CONSUMING NOON MEAL TRAY AT THIS TIME. AWAITING TELEMETRY UNIT TO APPLY TO PATIENT. SHIRLEY NEEDS. NO DISTRESS.
[2020-11-11] MEDS ORDERED: COZAAR100 MG PO (12:28)
[2020-11-11] MEDS ORDERED: FISH OIL 1,0001 CA1 PO (12:32)
--- NOTE | 2020-11-11 18:05 | NUR ---
fsbs 348. 8 units humalog administered per sliding scale. no distress.
--- NOTE | 2020-11-11 20:21 | NUR ---
INITIAL ROUNDS COMPLETED AT 1920 HRS. PT DENIED ANY DISCOMFORT. CALL LIGHT WITHIN REACH.
--- NOTE | 2020-11-11 22:31 | NUR ---
ASSESSMENT COMPLETED AT 2000 HRS. VSS. SR PER CM HR 83. ALERT AND ORIENTED TO PERSON,PLACE AND TIME. [place]. PALPABLE PERIPHERAL PULSES. LUNGS DIMINISHED IN BASES BILAT. O2 2LNC. NON PRODUCTIVE COUGH NOTED. IV TO L HAND SL. PT UP TO SHOWER AT 2145 HRS. HIBICLENS BATH DONE. EXPLAINED NPO AFTER MIDNIGHT FOR AM [facility]. PT STATED UNDERSTANDING. PT CURRENTLY WATCHING TV. SR UP X1, CALL LIGHT WITHIN REACH.
--- NOTE | 2020-11-11 23:58 | NUR ---
FSBS 308. 8 UNITS HUMALOG GIVEN SUB-Q TO UPPER R ARM PER S/S. NO DISTRESS NOTED. NPO AT 2400 FOR AM [facility].
[2020-11-12 00:53] VITALS: BP 160/59
--- NOTE | 2020-11-12 02:06 | NUR ---
PT RESTING WITH EYES CLOSED. RESP EVEN AND REGULAR. SR UP X1, CALL LIGHT WITHIN REACH.
--- NOTE | 2020-11-12 04:41 | NUR ---
PT RESTING WITH EYES CLOSED. RESP EVEN AND REGULAR. SR UP X1, CALL LIGHT WITHIN REACH.
[2020-11-12 05:23] VITALS: BP 184/58
--- NOTE | 2020-11-12 06:43 | NUR ---
AM BP 184/58. AM CARDURA GIVEN WITH SIPS OF H20. AM IV LASIX GIVEN. AM FSBS 155. NO COVERGE PT NPO FOR LHC. L GROIN CLIPPED. HIBICLENS DONE. NEEDS MET; WILL CONTINUE TO MONITOR.
--- NOTE | 2020-11-12 07:00 | NUR ---
RECEIVED REPORT. ASSUMED CARE OF PATIENT. CALL LIGHT WITHIN REACH. RESTING WITH EYES OPEN, QUESTIONS ABOUT HEART CATH THIS AM. NO DISTRESS. WHITE BOARD UPDATED, BEDSIDE SHIFT REPORT COMPLETE.
--- NOTE | 2020-11-12 07:11 | NUR ---
PATIENT PREOP'T AT THIS TIME FOR HEART CATH PER REQUEST OF RESIDENCE DIRECTOR.
--- NOTE | 2020-11-12 07:55 | NUR ---
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 NO ACUTE DISTRESS UPON LEAVING UNIT.
--- NOTE | 2020-11-12 08:52 | NUR ---
RECEIVED CALL FROM ROBERT IN TECHNICAL ACCOUNT EXECUTIVE, PATIENT WILL BE RECOVERED IN TECHNICAL ACCOUNT EXECUTIVE AND SENT HOME FROM THERE. PATIENT WILL NOT BE RETURNING TO UNIT. TECHNICAL ACCOUNT EXECUTIVE NURSE WILL COME AND RETRIEVE PATIENTS PERSONAL BELONGINGS LEFT IN ROOM.
[2020-11-12 08:55] LABS: BASOPHILS 0.4 % (0-2); EOSINOPHILS 0.2 % (0-7); HEMATOCRIT 33.6 % (36.0-48.0); HEMOGLOBIN 10.7 g/dL (12-16); LYMPHOCYTES 11.6 % (15-50); MCH 25.8 pg (26.0-34.0); MCHC 31.9 g/dL (31.0-37.0); MCV 80.9 fL (80.0-100.0); MEAN PLATELET VOLUME 11.3 fL (7.4-10.4); MONOCYTES 8.5 % (2-11); NEUTROPHILS 79.3 % (40-80); PLATELET COUNT 181 10x3/uL (130-400); RBC 4.16 10x6/uL (4.00-5.40); RDW 13.5 % (11.5-14.5); WBC 12.9 10x3/uL (4.8-10.8)
[2020-11-12 08:58] LABS: ALBUMIN 2.9 g/dL (3.4-5.0); ANION GAP 11.2 mmol/L (8-16); BILIRUBIN - TOTAL 0.29 mg/dL (0.2-1.3); CALCIUM 8.7 mg/dL (8.5-10.1); CARBON DIOXIDE 29.9 mmol/L (21.0-32.0); CREATININE - SERUM 1.2 mg/dL (0.6-1.3); MAGNESIUM - SERUM 2.8 mg/dL (1.8-2.4); PHOSPHOROUS 4.4 mg/dL (2.5-4.9); POTASSIUM - SERUM 4.1 mmol/L (3.5-5.1); PROTEIN - SERUM 6.8 g/dL (6.4-8.2)
--- NOTE | 2020-11-12 09:00 | NUR ---
PT ARRIVED TO CATH RECOVERY ROOM 8. MONITORING EQUIPMENT APPLIED. ASSESSMENT COMPLETE. R WRIST Z BAND SITE CDI, NO S/S OF BLEEDING. NO C/O PAIN AT THIS TIME. AOX4, FOLLOWS COMMANDS. CALL LIGHT WITHIN PT REACH.
--- NOTE | 2020-11-12 09:15 | NUR ---
R WRIST Z BAND SITE CDI, NO S/S OF HEMATOMA. NO COMPLAINTS AT THIS TIME. RESTING COMFORTABLY. CALL LIGHT WITHIN PT REACH.
--- NOTE | 2020-11-12 09:30 | NUR ---
PT RESTING COMFORTABLY WITH NO COMPLAINTS. R WRIST Z BAND SITE CDI WITH NO S/S OF BLEEDING. CALL LIGHT WITHIN PT REACH.
[2020-11-12 09:43] VITALS: BP 155/50
--- NOTE | 2020-11-12 09:45 | NUR ---
R WRIST Z BAND SITE CDI, NO S/S OF HEMATOMA. PERIPHERAL PULSES PRESENT. NO COMPLAINTS AT THIS TIME. CALL LIGHT WITHIN PT REACH.
--- NOTE | 2020-11-12 10:00 | NUR ---
R WRIST Z BAND SITE CDI WITH NO S/S OF HEMATOMA. PT RESTING QUIETLY WITH NO COMPLAINTS. CALL LIGHT WITHIN PT REACH.
--- NOTE | 2020-11-12 10:15 | NUR ---
R WRIST Z BAND SITE CDI WITH NO S/S OF HEMATOMA. R HAND WARM, CAP REFILL WNL. VOICES NO COMPLAINTS AT THIS TIME. CALL LIGHT WITHIN PT REACH.
[2020-11-12] MEDS ORDERED: PLAVIX75 MG PO (10:16)
--- NOTE | 2020-11-12 10:30 | NUR ---
R WRIST Z BAND SITE CDI WITH NO S/S OF HEMATOMA. PERIPHERAL PULSES PRESENT. CALL LIGHT WITHIN PT REACH.
--- NOTE | 2020-11-12 11:00 | NUR ---
PT VOIDED 200MLS YELLOW URINE
--- NOTE | 2020-11-12 11:02 | NUR ---
R WRIST Z BAND SITE CDI, NO S/S OF HEMATOMA. PERIPHERAL PULSES PRESENT. CALL LIGHT WITHIN PT REACH.
--- NOTE | 2020-11-12 11:38 | NUR ---
R WRIST Z BAND SITE CDI WITH NO S/S OF HEMATOMA. 3CC AIR RELEASED FROM Z BAND, NO BLEEDING NOTED. CALL LIGHT WITHIN PT REACH.
--- NOTE | 2020-11-12 11:59 | NUR ---
R WRIST WITH Z BAND SITE CDI, NO S/S OF HEMATOMA. PERIPHERAL PULSES PRESENT. 6CC TOTAL AIR RELEASED FROM Z BAND, NO BLEEDING NOTED. CALL LIGHT WITHINI PT REACH.
--- NOTE | 2020-11-12 12:15 | NUR ---
TOTAL AIR RELEASED FROM Z BAND WITH NO S/S OF BLEEDING, DRSG APPLIED. PIV D/C'D WITH TIP INTACT. CALL LIGHT WITHIN PT REACH.
--- NOTE | 2020-11-12 12:41 | NUR ---
DISCHARGE INSTRUCTIONS PROVIDED, PT VERBALIZES UNDERSTANDING. PT ALLOWED TO GET DRESSED INDEPENDENTLY. R WRIST WITH DRSG CDI, NO S/S OF HEMATOMA.
--- NOTE | 2020-11-12 13:30 | NUR ---
PT DISCHARGED VIA WHEELCHAIR TO PRIVATE VEHICLE. ALL BELONGINGS AND PAPERWORK WITH PT.
--- NOTE | 2020-11-13 14:32 | OP ---
PATIENT NAME: NICK TRIMBLE MEDICAL RECORD: [id number] :51 LOCATION:[facility] ADMISSION DATE:11/11/20 SURGEON: JOHN PEREZ MD DATE OF OPERATION: 11/12/2020 PROCEDURE: Left heart catheterization, selective coronary angiography plus IFR wire to the right plus stenting to the right coronary artery, radial approach. CATHETERS: Radial sheath, [place] catheter. Hockey stick for guide. The procedure was well tolerated. The patient was returned to the titus. Sheath removed. TR band was placed. FINDINGS: Left ventriculography in 30-degree LUCIO view; normal wall motion, normal systolic function. CORONARY ANATOMY: LEFT MAIN: Left main is free of disease. LAD: Prior to the previously placed stent has about 70% to 80% stenosis. This was prior to the previously placed stents. CIRCUMFLEX: Previous stenting is widely patent. No evidence of restenosis. RIGHT CORONARY ARTERY: Stents are widely patent; however, distal to this there is a 90% plus stenosis confirmed via IFR wire, less than 0.9. DESCRIPTION OF PROCEDURE: We used a 3.0 x 14 mm [place] drug-eluting stent up to 14 atmospheres for 45 seconds. Final angiography shows excellent resolution of 90% stenosis. No significant residual. ALEA flow was 3 throughout the procedure. Heparin and Integrilin were used during the case. Plavix loaded in the lab. Intervention of LAD at a later date. TRANSINT:[id number] Voice Confirmation ID: [id number] DOCUMENT ID: [id number] JOHN PEREZ MD at 1432 CC: [id number] DICTATION DATE: 11/12/20 0841 CAMP DIRECTOR: 11/12/20 1129 DIS IN 11/12/20 [facility] [address] [id number]
== END 2020-11-12 13:30 | disposition home or self-care (01) | DRG 247 ==
LOC: D.ER 00:33 → D.EDHOLD 01:44 → OBSVTIME 01:44 → D.M2 10:31 → D.CLR 17:34
PROVIDERS: Family Medicine; Internal Medicine Interventional Cardiology; ADMIT Emergency Medicine; ATTEND Emergency Medicine
PROC: B2111ZZ Fluoroscopy of Multiple Coronary Arteries using Low Osmolar Contrast (ICD-10-PCS; 2020-11-12)
PROC: B2151ZZ Fluoroscopy of Left Heart using Low Osmolar Contrast (ICD-10-PCS; 2020-11-12)
PROC: 027034Z Dilation of Coronary Artery, One Artery with Drug-eluting Intraluminal Device, Percutaneous Approach (ICD-10-PCS; principal; 2020-11-12 15:00)
PROC: 4A023N7 Measurement of Cardiac Sampling and Pressure, Left Heart, Percutaneous Approach (ICD-10-PCS; 2020-11-12 15:00)
DX: I21.4 Non-ST elevation (NSTEMI) myocardial infarction (principal); E11.65 Type 2 diabetes mellitus with hyperglycemia; D64.9 Anemia, unspecified; I45.10 Unspecified right bundle-branch block; I25.10 Atherosclerotic heart disease of native coronary artery without angina pectoris; I10 Essential (primary) hypertension; I35.0 Nonrheumatic aortic (valve) stenosis; J44.9 Chronic obstructive pulmonary disease, unspecified; E11.319 Type 2 diabetes mellitus with unspecified diabetic retinopathy without macular edema; Z86.73 Personal history of transient ischemic attack (TIA), and cerebral infarction without residual deficits